=== PATIENT | female | born 1995 | race Caucasian/White ===

== ENCOUNTER 2020-01-27 13:43 | Outpatient (CLI) | payer OTHER, SELFPAY | END 2020-01-27 13:44 | disposition home or self-care (01) | LOC: ANHAUDIO 13:44 | PROVIDERS: Visit Provider Otolaryngology | DX: H90.72 Mixed conductive and sensorineural hearing loss, unilateral, left ear, with unrestricted hearing on the contralateral side (principal) | CPT/HCPCS: 92557; 92567 ==